=== PATIENT | female | born 1955 | race Caucasian/White ===

== ENCOUNTER → 2017-02-14 | Outpatient (CLI) | payer MEDICAID ==
[~2017-02-14] MED LIST: CLARITIN10 MG OR; PRILOSEC20 M1 PO
[2017-02-14 09:32] LABS: HEMOGLOBIN 14.6 g/dL (12.2-16.2); LYMPH # 1.6 K/mm3 (0.7-4.5); LYMPH % 26.7 % (10-50.0)
[2017-02-14 10:33] LABS: BUN 2 mg/dL (7-18)
[2017-02-14 10:34] LABS: GFR (ESTIMATED) 126 ML/MIN (59-)
== END ==
LOC: LAB 08:59
PROVIDERS: Surgery
DX: S31.829A Unspecified open wound of left buttock, initial encounter (principal); Z01.812 Encounter for preprocedural laboratory examination

== ENCOUNTER 2017-02-24 12:36 | Day surgery (SDC) | payer MEDICAID ==
[~2017-02-24] VITALS: Ht 162.6 cm; Wt 57.6 kg
--- NOTE | 2017-02-24 15:12 | Operative Note ---
Surgeon/Diagnoses Surgeon/[employer] Leader(s) Date of procedure: 02/24/17 Surgeon: MD Noelle Llanos Diagnoses Pre-op diagnosis: 15 mm and adjacent 2 mm pigmented skin lesions along LEFT buttock Post-op diagnosis Same Procedure Procedure Procedure: Excision of 15 mm skin lesion from LEFT buttock and punch biopsy of 2 mm skin lesion from LEFT buttock Indications: RAMIRO AMOS is a 62 year-old Female with a history of pigmented, somewhat irregular skin lesions along the LEFT buttock. Findings: Excision of 15 mm lesion with 1 mm margin Punch biopsy of 2 mm lesion with 4 mm punch Procedure Description: After informed consent was obtained, the patient was taken to the operating room and placed in the supine position. Monitored anesthesia care ensued after transferred to the RIGHT lateral decubitus position. The LEFT buttock was prepped and draped in a sterile fashion. After infiltration with local anesthetic a 4 mm punch was utilized to remove the 2 mm pigmented skin lesion. The 15 mm skin lesion was excised utilizing an elliptical incision. The deep subcu tissues tissue was dissected sharply. Both specimens were passed off for pathologic evaluation. Electrocautery was utilized to achieve hemostasis. Skin was closed with interrupted 4-0 nylon. Dressings were applied and the patient was transferred to recovery in stable condition. EBL (ml): 5 Anesthesia: Monitored anesthesia care Complications: No immediate Specimens: 15 mm pigmented skin lesion along LEFT buttock 2 mm skin lesion along LEFT buttock (punch biopsy) Disposition Disposition: Stable to recovery from where she will be discharged home. She will follow-up in one week. at [id number]
[2017-02-24 15:51] VITALS: BP 141/72
== END 2017-02-24 15:44 | disposition home or self-care (01) ==
LOC: SDC 12:36
PROVIDERS: Surgery
PROC: 0HB8XZX Excision of Buttock Skin, External Approach, Diagnostic (ICD-10-PCS; 2017-02-24)
PROC: 0HB8XZZ Excision of Buttock Skin, External Approach (ICD-10-PCS; principal; 2017-02-24 14:15)
DX: D48.5 Neoplasm of uncertain behavior of skin (principal)